=== PATIENT | female | born 1935 | race Caucasian/White ===

== ENCOUNTER 2019-05-11 10:05 | Inpatient (IN) ==
[2019-05-11] MEDS ORDERED: STERILE WATER INJ. INJ PRN ×2 (11:41→13:15)
[2019-05-11] MEDS ORDERED: GEODON IM PRN ×2 (11:41→13:09)
--- NOTE | 2019-05-11 11:56 | EKG Report ---
Test Performed on : 05/11/2019 11:49:35 AM Test Reason : Chest pain/AMS Blood Pressure : / mmHG Vent. Rate : 055 BPM Atrial Rate : 055 BPM P-R Int : 202 ms QRS Dur : 074 ms QT Int : 468 ms P-R-T Axes : 051 008 071 degrees QTc Int : 447 ms Sinus bradycardia. with premature atrial complexes. Moderate voltage criteria for LVH, may be normal variant Borderline ECG When compared with ECG of 09-APR-2009 11:29, premature atrial complexes. are now present Vent. rate has decreased BY 43 BPM Confirmed by Santy Gill MD ([id number]) on 05/15/2019 9:30:16 PM
--- NOTE | 2019-05-11 12:09 | Diag Imaging Result Doc PS360 ---
EXAM: CHEST-2 VIEWS 05/11/2019 HISTORY: Chest pain TECHNIQUE: AP and lateral chest COMMENT: There are no previous studies available for comparison. The heart size is slightly enlarged. There is no evidence of acute pulmonary disease. There is severe spondylosis in the thoracic spine. There are degenerative changes in the right acromioclavicular joint. IMPRESSION: Cardiomegaly. Degenerative disc disease. Osteoarthritis. Electronically signed by Kirk Lopez 05/11/2019 12:06 PM
--- NOTE | 2019-05-11 12:39 | Diag Imaging Result Doc PS360 ---
EXAM: CT HEAD W/O CONTRAST 05/11/2019 HISTORY: AMS TECHNIQUE: This exam was performed using automated exposure control, adjustment of mA or kV according to patient size, and/or use of iterative reconstruction technique. COMMENT: There is patchy lucency in the periventricular and subcortical white matter of both hemispheres with cortical encephalomalacia in the posterior right hemisphere. There is no evidence of bleed mass effect or abnormal extra-axial fluid collection. The calvarium is intact. The visualized paranasal sinuses are clear. There are no previous studies. IMPRESSION: Chronic ischemic changes. No evidence of acute disease. Electronically signed by Kirk Lopez 05/11/2019 12:37 PM
[2019-05-11 12:41] LABS: BASO# 0.01 X1000 (0.0-0.2); BASO% 0.1 % (0.0-0.8); EOS# 0.16 X1000 (0.0-0.7); EOS% 2.2 % (0.0-10.0); HEMOGLOBIN 13.4 g/dL (12.0-16.0); LYMPH# 2.27 X1000 (1.2-3.4); LYMPH% 31.2 % (20.5-51.1); MCH 30.7 PG (27-31); MCHC 33.5 g/dL (33-37); MCV 91.5 FL (81-99); MONO# 0.84 X1000 (0.11-0.59); MONO% 11.5 % (1.7-9.3); MPV 10.2 FL (7.4-10.4); PLT 234 X1000 (130-400); RBC 4.37 XMIL (4.2-5.4); RDW 12.9 % (11.5-14.5); WBC 7.28 X1000 (4.8-10.8)
[2019-05-11 13:01] LABS: AGAP 9; ALB/GLOB RATIO 1.6; ALBUMIN 3.9 g/dL (3.5-5.0); ALKALINE PHOSPHATASE 52 U/L (32-104); BUN 15 mg/dL (8-22); CALCIUM 9.2 mg/dL (8.8-10.2); CHLORIDE 106 mmol/L (98-107); COSMO 284; CREATININE 0.8 mg/dL (0.5-0.9); ESTIMATED GFR > 60; GLUCOSE 105 mg/dL (70-104); GOT 15 U/L (10-30); GPT 14 U/L (10-36); POTASSIUM 4.3 mmol/L (3.5-5.1); SODIUM 142 mmol/L (136-145); TCO2 27 mmol/L (25-35); TOTAL BILIRUBIN 0.18 mg/dL (0.20-1.00); TOTAL PROTEIN 6.4 g/dL (6.3-8.3)
[2019-05-11] MEDS: ULTRAM PO PRN (16:02)
[2019-05-11 17:22] LABS: URINE SOURCE CLEAN CATCH
[2019-05-11 17:23] LABS: BILIRUBIN URINE NEGATIVE (NEGATIVE); BLOOD URINE NEGATIVE (NEGATIVE); COLOR STRAW; GLUCOSE URINE NEGATIVE (NEGATIVE); KETONE URINE NEGATIVE (NEGATIVE); LEUKOCYTES URINE MODERATE (NEGATIVE); NITRITE URINE POSITIVE (NEGATIVE); PROTEIN URINE NEGATIVE (NEGATIVE); SP GRAVITY URINE 1.007; TURBIDITY URINE HAZY (CLEAR); UR EPITHELIAL CELLS <10 /HPF (<10); URINE BACTERIA 4+ /HPF; URINE RBC <10 /HPF (<10); URINE WBC <10 /HPF (<10); UROBILINOGEN URINE NORMAL (NORMAL)
--- NOTE | 2019-05-11 19:27 | HISTORY AND PHYSICAL ---
HISTORY OF PRESENT ILLNESS: Ms. Raymond who is an 83-year-old white female is admitted because of acute change in her mental status over the last 2 to 3 days. She has been more confused. She is seeing a man around her house. At times, she says, the man is there, but his children are there and these kind of stories she is making and she says that it is real. She has crying spells and severe confusion in between. Her mental status is slowing going down, but these are acute changes. She is known to have hypertension and hyperlipidemia. SURGICAL HISTORY: History of both ovaries removed. No history of smoking or alcoholism. ALLERGIC: To penicillin. REVIEW OF SYSTEMS: Cannot be obtained. MEDICATIONS: Include amlodipine 5 mg daily, lovastatin 20 mg daily, Meloxicam 15 mg daily, tramadol 50 mg p.r.n. PHYSICAL EXAMINATION: GENERAL: Patient is alert, but confused. VITAL SIGNS: Reveal temperature normal, pulse 67 per minute, irregular, respiratory rate 18, blood pressure 149/60. HEENT: Head normocephalic. Pupils PERRLA. Fundus exam normal. NECK: Supple. JVP normal. ENT: Examination unremarkable. LYMPH NODES: There is no evidence of lymphadenopathy, thyroid enlargement. EXTREMITIES: Pedal edema, calf tenderness, anemia, cyanosis or clubbing. Pedal pulses well felt. BREAST EXAM: Not done. CHEST: Normal to inspection. LUNGS: Clear on auscultation. PMI in the normal position. HEART: Sounds normal. No murmur, gallop or rub noted. ABDOMEN: Nondistended. Hernial orifices normal. No guarding, rigidity, free fluid, masses, or organomegaly. Bowel sounds normal. RECTAL: Deferred. 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 Severe mental confusion. Speech is normal. Cranial nerves normal. Motor and sensory system examination unremarkable. Deep tendon reflexes normal. Plantars downgoing. Skull and spine examination normal for age. No cerebellar signs or signs of meningeal irritation. Locomotor exam reveals presence of severe arthritis in both knees. The knees are swollen. SKIN: Unremarkable. CLINICAL IMPRESSION: Acute change in mental status. The patient has early dementia, hypertension, hyperlipidemia, degenerative osteoarthritis in both knees. PLAN: I plan to watch her neurologically and do some investigations about her increasing dementia. cc: Mathew Lowe MD
[2019-05-12] MEDS ORDERED: ZOFRAN IV PRN (08:52)
--- NOTE | 2019-05-12 09:42 | PROGRESS NOTE ---
DATE: 05/12/2019 The patient was admitted. She is in room 318-A. She was admitted because of acute change in her mental status. She has early dementia. This morning, we have the urinalysis report and it shows 4+ bacteria with too numerous WBCs. I personally feel like she has a urinary tract infection which partly could be responsible for the change in her mental status. We will start IV Levaquin on her. Her electrolytes status is normal. We will continue with the current management. CT scan of the brain shows microvascular changes. Otherwise, it is negative. -4 cc: Mathew Lowe MD
[2019-05-12] MEDS: LEVAQUIN 500 MG/D5W 500 MG/100 ML IVPB IV SCH (09:47)
[2019-05-12] MEDS: MOBIC PO SCH (09:47)
[2019-05-12] MEDS: NORVASC PO SCH (09:47)
[2019-05-12] MEDS: ULTRAM PO PRN (10:10)
[2019-05-12] MEDS ORDERED: PHENERGAN IV PRN (17:23)
[2019-05-12] MEDS ORDERED: SODIUM CHLORIDE 0.9% INJ PRN (17:23)
[2019-05-12] MEDS: MEVACOR PO SCH (19:56)
--- NOTE | 2019-05-13 08:33 | Diag Imaging Result Doc PS360 ---
EXAM: CHEST-2 VIEWS 05/13/2019 HISTORY: Pt aspirated last night. TECHNIQUE: PA and lateral chest COMMENT: There is opacification in the left costophrenic angle which has worsened since 05/11/2019. Otherwise are has been no significant change. IMPRESSION: Left lower lobe atelectasis and/or pneumonia. Electronically signed by Kirk Lopez 05/13/2019 8:30 AM
[2019-05-13] MEDS: MEVACOR PO SCH (08:40)
[2019-05-13] MEDS: MOBIC PO SCH (08:40)
[2019-05-13] MEDS: LEVAQUIN 500 MG/D5W 500 MG/100 ML IVPB IV SCH (08:40)
[2019-05-13] MEDS: NORVASC PO SCH (08:40)
[2019-05-13] MEDS ORDERED: VANCOMYCIN IV PER PHARMACY MISC SCH (11:15)
--- NOTE | 2019-05-13 12:00 | Diag Imaging Result Doc PS360 ---
EXAM: ABDOMEN FLAT/UPRIGHT HISTORY: abdominal pain TECHNIQUE: Flat and upright, two views COMPARISON: None. FINDINGS: No free air beneath the diaphragm. There is prominent stool throughout the colon. No bowel obstruction. No organomegaly. Prominent degenerative spine changes. Long-standing arthritis to the right hip. IMPRESSION: Prominent constipation Electronically signed by Junaid Vasquez 05/13/2019 11:58 AM
[2019-05-13] MEDS ORDERED: VANCOMYCIN 1,800 MG in NS 500 ML IV ONE (13:00)
--- NOTE | 2019-05-13 14:45 | EKG Report ---
Test Performed on : 05/13/2019 2:33:21 PM Test Reason : afib Blood Pressure : / mmHG Vent. Rate : 124 BPM Atrial Rate : 136 BPM P-R Int : 000 ms QRS Dur : 072 ms QT Int : 298 ms P-R-T Axes : 000 -11 110 degrees QTc Int : 428 ms Atrial fibrillation. with rapid ventricular response. Voltage criteria for left ventricular hypertrophy Nonspecific ST and T wave abnormality Abnormal ECG When compared with ECG of 11-MAY-2019 11:49, (Unconfirmed) Atrial fibrillation. has replaced Sinus rhythm. Vent. rate has increased BY [address] now depressed in Anterior leads ST no longer elevated in Lateral leads T wave inversion more evident in Lateral leads Confirmed by Santy Gill MD ([id number]) on 05/15/2019 9:33:00 PM
[2019-05-13] MEDS: CARDIZEM PO SCH ×2 (14:56→20:02)
[2019-05-13 15:19] LABS: ALLEN TEST YES; BE 3.1 mmoll (-3.0-3.0); BLOOD TYPE ARTERIAL; HCO3-(ACT) 27.3 mmoll (20.0-26.0); METHB 1.1 % (0.0-1.5); O2(CT) 18.1 mL/dL (15.0-23.0); O2HB 95.6 % (95.0-99.0); PCO2(98.6) 38 mmHg (35-45); PO2(98.6) 86 mmHg (60-100); SAMPLE BLOOD; SAO2 98.4 % (95.0-100.0); THB 13.4 g/dL (11.5-17.4); pH(98.6) 7.46 (7.35-7.45)
[2019-05-13 15:21] LABS: MODALITY CANNULA
--- NOTE | 2019-05-13 16:51 | Diag Imaging Result Doc PS360 ---
EXAM: US GB < RUQ (LIMITED) 05/13/2019 HISTORY: abdominal pain TECHNIQUE: Right upper quadrant ultrasound COMMENT: The pancreatic head and body are normal in appearance. The infrarenal abdominal aorta is slightly distended to a maximum AP diameter of 2.3 cm. The inferior vena cava is unremarkable where it is visible. The liver is unremarkable. There is a large stone in the gallbladder. This measures at least 2 cm in size. There is a positive sonographic Martinez sign. The right kidney is without evidence of hydronephrosis or mass. There is antegrade flow in the portal vein. The common bile duct is not distended measuring less than 4 mm. IMPRESSION: Minimal abdominal aortic aneurysm. Cholelithiasis and possible cholecystitis. Electronically signed by Kirk Lopez 05/13/2019 4:48 PM
[2019-05-14] MEDS: CARDIZEM PO SCH ×3 (04:04→22:21)
[2019-05-14] MEDS ORDERED: ELIQUIS PO SCH ×2 (09:00→21:00)
[2019-05-14] MEDS: LEVAQUIN 500 MG/D5W 500 MG/100 ML IVPB IV SCH (09:07)
[2019-05-14 09:24] LABS: AGAP 12; BUN 19 mg/dL (8-22); CHLORIDE 105 mmol/L (98-107); COSMO 287; CREATININE 0.8 mg/dL (0.5-0.9); ESTIMATED GFR > 60; GLUCOSE 124 mg/dL (70-104); POTASSIUM 4.1 mmol/L (3.5-5.1); SODIUM 142 mmol/L (136-145); TCO2 25 mmol/L (25-35)
--- NOTE | 2019-05-14 10:08 | PROGRESS NOTE ---
DATE: 05/13/2019 SUBJECTIVE: Ms. Raymond aspirated yesterday and probably developed pneumonia. She had a left lower lobe infiltrate. We are already giving her IV Levaquin, and we will add vancomycin on top of that. She seems to be doing better. Her vital signs are stable. She is still confused. We will continue with the current management. cc: Mathew Lowe MD
--- NOTE | 2019-05-14 10:43 | CARDIOLOGY CONSULTATION ---
DATE: 05/14/2019 INDICATION: Atrial fibrillation with rapid response. CHIEF COMPLAINT: Confusion, abdominal discomfort. HISTORY: Ms. Raymond is a very pleasant 83-year-old female, who was admitted to the hospital on May 11 as recommended by home health nurses because they found her confused at home. Initially on May 11 they did a chest x-ray that shows cardiomegaly, osteoarthritis, degenerative disk disease. The first electrocardiogram done on the day of admission at 1130 hours in the morning shows sinus rhythm with premature atrial beats. The patient received a CT of the head that showed chronic ischemic changes. Urinalysis grew E coli which is sensitive to several antibiotics, including ampicillin and Levaquin. The patient subsequently was found to have tachycardia with an irregular pulse, and telemetry revealed atrial fibrillation with rapid response. EKG done yesterday at 1433 hours in the afternoon shows atrial fibrillation, 124 beats per minute with a leftward axis LVH. The patient had complained of abdominal pain at home. This seems to have gotten better. Her appetite is preserved. She has not lost any weight. She denies feeling short of breath or having any pain at this time. PAST HISTORY: Positive for hypertension, hyperlipidemia. She is not diabetic. She has no prior history of stroke or atrial fibrillation. No heart disease. SURGICAL HISTORY: She had hysterectomy many years ago. SOCIAL HISTORY: She has been a for more than 30 years. She has 3 living children; 1 was . She is not a smoker. FAMILY HISTORY: She was the youngest of 8 siblings. No significant history of heart disease in family members, parents or siblings. HOME MEDICATIONS: At the time of this admission included amlodipine 5 mg daily, metoprolol 100 twice a day, Mobic 15 mg daily, ibuprofen with diphenhydramine at bedtime. She also takes a multivitamin. ALLERGIES: Penicillin. REVIEW OF SYSTEMS: The patient has no history of previous chest pains or dyspnea. No episode of pneumonia. Last hospital admission 30 years ago for flu. No recent urinary tract infection. No GI complaints. No skin issues. No previous psychiatric illness or stroke. No hearing or visual problems. Her balance is really not that good. However, she has not had any falls at home. She walks with a walker. No other significant issues in the review of systems. PHYSICAL EXAMINATION: Vital signs: Blood pressure 146/50, temperature 97.6 degrees, pulse fluctuates from 70 to 100, respirations 20. General: The patient is awake, alert, oriented, in no distress. HEENT: Unremarkable. Neck: No jugular venous distention. No cervical bruits. Chest: Shows diminished breath sounds, especially in the right base. I do not hear any rales. Heart: Sounds are irregularly irregular. I do not appreciate any murmur. Abdomen: Slightly distended, tympanitic. No hepatomegaly noted. Extremities: Showed palpable pulses without significant edema. No varicose veins. Neurological exam: She follows simple commands. Hearing is good. BLOOD WORK: On admission, white cell count 7280, hemoglobin 13.4, hematocrit 40%. Her sedimentation rate is slightly up to 25 mm an hour. D-dimer 3.8. Blood gases: A pH 7.46, pCO2 38, PO2 86; this is on 2 L nasal cannula. Her BMP today shows sodium 142, potassium 4.1, BUN 19, creatinine 0.8. C-reactive protein is slightly elevated at 6.76. Urinalysis showed moderate leukocytes, 4+ bacteria. LDL cholesterol 78. IMPRESSION: 1. Patient who presented with what appears to be transient confusion/mental status changes probably related to urinary tract infection/urosepsis. 2. Paroxysmal atrial fibrillation. 3. Hypertension. 4. Hyperlipidemia. RECOMMENDATION: At this time, I would suggest to get an echocardiogram. I agree with Eliquis 5 mg twice a day. I am going to add low-dose metoprolol 25 mg every 6 hours to the current doses of Cardizem 60 every 8 hours that was started by Dr. Lowe. Since the patient is relatively asymptomatic from the atrial fibrillation, we may not need to try to achieve conversion to sinus rhythm. We will try to focus on rate control. She may actually convert spontaneously. I will order an echocardiogram today and further advice will be forthcoming. I agree with CT of the lungs that has been requested by Dr. Lowe because of the positive D-dimer. cc: MD Matehw Ruiz MD MTDD
--- NOTE | 2019-05-14 11:27 | Diag Imaging Result Doc PS360 ---
EXAM: CT ANGIOGRM PULMONARY ARTERIES 05/14/2019 HISTORY: Elevated D-Dimer TECHNIQUE: This exam was performed using automated exposure control, adjustment of mA or kV according to patient size, and/or use of iterative reconstruction technique. COMMENT: 3-D MIPS were performed. There are no previous studies available for comparison. There are filling defects in the interlobar pulmonary artery on the right and multiple peripheral branches. There may also be some peripheral emboli in the left lower lobe. There is retained fluid in the esophagus. There is a fair amount of retained fluid and solid material in the stomach. There is apparent cholelithiasis. There is no evidence of significant adenopathy. There are spondylotic changes in the thoracic spine. There is a noncalcified pulmonary nodule in the posterior right lower lobe on image 32 measuring 8 mm in diameter. There is also some pleural-based nodules posteriorly in the apex and focal pleural thickening with nodularity laterally in the right upper lobe around image 21. There are atelectatic or fibrotic changes in the lingula and left lower lobe. IMPRESSION: Pulmonary emboli on the right. Retained fluid in the stomach and esophagus. Pulmonary nodules in the right upper lobe. The findings were discussed with Mathew Lowe MD at 05/14/2019 11:24 AM. Electronically signed by Kirk Lopez 05/14/2019 11:24 AM
[2019-05-14] MEDS: LOPRESSOR PO SCH ×3 (11:35→22:20)
[2019-05-14] MEDS: MOBIC PO SCH (13:39)
--- NOTE | 2019-05-14 13:50 | PROGRESS NOTE ---
DATE: 05/14/2019 SUBJECTIVE: Ms. Raymond had aspiration pneumonia on the left side yesterday. She suddenly went into atrial fibrillation with rapid heart rate. Cardiology consult was made. Her lab data revealed normal CBC. D-dimer level was 3.8, which was somewhat high. Arterial blood gases were unremarkable. Her C-reactive proteins were 6.76, which were high. She had a CTA done this morning which shows right-sided pulmonary emboli and some nodularity in the right lung base. She is already on Eliquis. We are going to get a Pulmonary consult with Dr. Ambriz. She according to the family is going to be no code level 2. cc: Mathew Lowe MD
[2019-05-14] MEDS: VANCOMYCIN 1,250 MG in NS 250 ML IV SCH (13:54)
--- NOTE | 2019-05-14 15:58 | ECHO REPORT ---
ORDER DATE: 05/14/2019 INTERPRETING PHYSICIAN: Dr. Mckinley REQUESTING PHYSICIAN: CLINICAL INDICATIONS: This is an 83-year-old female with atrial fibrillation, paroxysmal, urinary tract infection. M-MODE MEASUREMENTS: Right ventricle: cm. Left ventricle end diastole: 4.4 cm. Left ventricle end systole: 3.1 cm. Posterior wall: 1.2 cm. Interventricular septum: 1.2 cm. Left atrium: 4.1 cm. Aortic root: 3.3 cm. SUMMARY OF 2-DIMENSIONAL IMAGIN. Left ventricular function is normal. Ejection fraction was 62%. There was no wall motion abnormality noted. 2. Right ventricle appears to be normal. 3. Atria appear to be normal. 4. Aortic valve looks normal. Color flow mapping is unremarkable. 5. Mitral valve looks normal. Color flow mapping indicates minimal degree of regurgitation. 6. Pulse wave Doppler of mitral inflow shows reversal of the E and the A ratio. The ratio is 0.6. 7. Tissue Doppler of septal and lateral mitral annulus averages 9 cm. 8. There is no diastolic dysfunction. 9. Pulmonic valve looks normal. 10.Tricuspid valve looks normal. Color flow mapping indicates mild degree of regurgitation. 11.Pulmonary pressure estimated at 43 mmHg. 12.There is no pericardial effusion, mass or thrombus. 13.Epicardial fat pad is noted. CONCLUSIONS: In summary, this study shows: 1. Normal left ventricular systolic function. 2. No diastolic dysfunction. 3. Pulmonary pressure 43 mmHg. 4. Mild degree of mitral regurgitation. 5. Unremarkable aortic valve. Clinical correlation recommended. cc: MD Mathew Ruiz MD
--- NOTE | 2019-05-14 16:57 | PULMONOLOGY CONSULTATION ---
DATE: 05/14/2019 REASON FOR CONSULTATION: Aspiration pneumonia, pulmonary embolism. HISTORY OF PRESENT ILLNESS: Ms. Raymond is an 83-year-old white female, never smoker, who may have early dementia, who was found to have increasing confusion with periods of hallucinations. The patient was evaluated by Dr. Lowe and subsequently admitted to the hospital with a urinary tract infection. Cultures revealed Escherichia coli. CT scan of the brain did not reveal acute changes. She did have an episode of emesis with possible aspiration in the evening of 05/12/2019 and chest x-ray on 05/13/2019 revealed possible pneumonia with atelectasis in the left lung base. This morning she developed atrial fibrillation with rapid ventricular response. The D-dimer was elevated. She underwent a CT pulmonary angiogram which revealed a pulmonary embolus to the right lower lobe with nonspecific subcentimeter nodules noted in the right lower lobe and in the right upper lobe. The patient is a questionable historian. She is a never smoker. She does report she had some clots in her left leg many years ago. She is currently undergoing an echocardiogram. PAST MEDICAL HISTORY: 1. Possible early dementia. 2. History of varicose veins. 3. Dyslipidemia. 4. Gastroesophageal reflux. 5. Macular degeneration. 6. Osteoarthritis. 7. Status post bilateral salpingo-oophorectomy. SOCIAL HISTORY: She is a never smoker. No alcohol use listed. She lives with her daughter. FAMILY HISTORY: Notable for a brother who had tuberculosis almost 60 years ago. Family history also positive for diabetes and heart disease . REVIEW OF SYSTEMS: Noncontributory and reviewed. PHYSICAL EXAM: Reveals an obese white female resting comfortably and in no distress. Blood pressure 155/75, heart rate 86, respiratory rate 16, oxygen saturation 99% on nasal cannula.HEENT: Pupils are equal and reactive. Oropharynx appears clear. Neck: Supple. Chest: Reveals minimal crackles in both lung bases. Cardiac: S1, S2. Abdomen: Obese and soft. Extremities: Reveal trace to 1+ peripheral edema. No markedly enlarged varicose veins present. IMPRESSION: 83-year-old with 1. Pulmonary emboli. 2. Possible history of deep vein thrombosis (will clarify with the family). 3. Confusion, which appears to be related to the urinary tract infection. 4. Paroxysmal atrial fibrillation. This may be related to pulmonary embolus but the amount of burden is not that great. She may be having paroxysmal episodes related to the embolus. 5. Episode of emesis with possible aspiration. CT scan reveals pulmonary embolus and some nonspecific nodules but does not show a significant pneumonitis. She might tolerate short course of antibiotics. PLAN: 1. Initiate Eliquis. Initial dosing is 10 mg twice a day for the 1st 7 days followed by 5 mg b.i.d. She might require lifelong anticoagulation if she has paroxysmal atrial fibrillation and this represents recurrent disease. 2. Consider followup CT scan for these nonspecific nodules in 6 months but her risk of malignancy appears to be low. cc: MD Mathew Garcia MD
[2019-05-14] MEDS ORDERED: LINZESS PO ONE (17:15)
[2019-05-14] MEDS: MEVACOR PO SCH (18:08)
[2019-05-14] MEDS: ELIQUIS PO SCH (22:20)
[2019-05-15] MEDS: LOPRESSOR PO SCH ×4 (03:08→20:15)
[2019-05-15] MEDS: CARDIZEM PO SCH ×3 (04:13→20:15)
[2019-05-15] MEDS: LINZESS PO SCH (06:24)
--- NOTE | 2019-05-15 06:56 | EKG Report ---
Test Performed on : 05/15/2019 06:37:51 AM Test Reason : paroxysmal atrial fibrillation Blood Pressure : / mmHG Vent. Rate : 069 BPM Atrial Rate : 069 BPM P-R Int : 210 ms QRS Dur : 082 ms QT Int : 412 ms P-R-T Axes : 082 -04 090 degrees QTc Int : 441 ms Sinus rhythm. with 1st degree AV block. with premature atrial complexes. Minimal voltage criteria for LVH, may be normal variant Borderline ECG When compared with ECG of 13-MAY-2019 14:33, (Unconfirmed) Sinus rhythm. has replaced Atrial fibrillation. Vent. rate has decreased BY 55 BPM Confirmed by Santy Gill MD ([id number]) on 05/15/2019 9:33:21 PM
[2019-05-15] MEDS: LEVAQUIN 500 MG/D5W 500 MG/100 ML IVPB IV SCH (08:00)
[2019-05-15] MEDS: ELIQUIS PO SCH ×2 (08:59→20:15)
--- NOTE | 2019-05-15 10:50 | CARDIOLOGY PROGRESS NOTE ---
DATE: 05/15/2019 CHIEF COMPLAINT: Confusion, irregular heart beat. SUBJECTIVE: Ms. Raymond is feeling better. She converted to sinus rhythm with the addition of beta blockers. Yesterday, a CT of the pulmonary arteries revealed the presence of pulmonary emboli at the level of the right pulmonary branches, right upper lobe, and lower lobe. Also some in the left lower lobe. There is apparent cholelithiasis described by the radiologist. The patient is already on Eliquis 10 mg twice a day as suggested by Dr. Lowe. OBJECTIVE: Blood pressure is 141/80, temperature 97.8, pulse 68, respirations 18. She is awake, in no distress. She seems to be more comfortable. HEENT: Unremarkable. Chest: Slightly diminished breath sounds at the bases. Heart sounds are regular with occasional extrasystole. Abdomen is nontender. Extremities showed no edema. Neurologic: Follows commands. Moves all 4 extremities. DIAGNOSTIC DATA: Blood work from yesterday showed sodium 142, potassium 4.1, BUN and creatinine normal. IMPRESSION: 1. The patient presented with acute mental status changes, suspected to be related to urosepsis. Urine is growing E. coli. 2. Incidental finding of pulmonary emboli. 3. Paroxysmal atrial fibrillation which has converted to sinus rhythm with beta blockers. 4. Hypertension. 5. History of hyperlipidemia. RECOMMENDATIONS: At this time, I would suggest to continue present medical therapy as we are doing. We will observe her clinical course. No changes at this time. I agree with Dr. Ambriz's and Dr. Lowe's plan of care. cc: MD Mathew Ruiz MD
--- NOTE | 2019-05-15 12:37 | PROGRESS NOTE ---
DATE: 05/15/2019 Ms. Raymond is feeling better. Her vital signs are stable. Lungs reveal some congestion bilaterally, more on the left side. She has a DVT and we will give her stockings. Overall condition is otherwise unchanged. Her EKG shows regular sinus rhythm. Echocardiogram shows good left ventricular function with EF of 62.7. Overall condition is unchanged. She is on Eliquis now. -2 cc: Mathew Lowe MD
[2019-05-15] MEDS: VANCOMYCIN 1,250 MG in NS 250 ML IV SCH (13:32)
--- NOTE | 2019-05-15 15:21 | PULMONOLOGY PROGRESS NOTE ---
DATE: 05/15/2019 SUBJECTIVE: The patient is awake and alert. She is without specific complaints. Family is present at the bedside. She does not recall a prior clot in the leg. Report not available for review, but the family reports that venous Dopplers did reveal a clot in the left leg. PHYSICAL EXAMINATION: General: Reveals a well-developed, well-nourished, white female in no distress. Vital Signs: BP 141/80, heart rate 68, respiratory rate 16, oxygen saturation 94% on 2 L per nasal cannula. HEENT: Pupils are equal and reactive. Oropharynx is clear. Neck: Supple. Chest: Reveals good air entry bilaterally without wheezing or rhonchi. Cardiac Exam: S1-S2. Abdomen: Soft. Extremities: Reveal trace bilateral edema. LABORATORIES: No new chemistries or cultures. IMPRESSION: An 83-year-old with: 1. Pulmonary emboli. 2. Deep vein thrombosis. 3. Pulmonary nodules. 4. Transient paroxysmal atrial fibrillation. 5. Dementia. RECOMMENDATIONS: 1. Continue Eliquis 10 mg twice a day for 7 days and then decrease to 5 mg twice a day. 2. Wean oxygen as tolerated. 3. Anticipate discharge home or rehab early next week. 4. Would continue Eliquis indefinitely if she has had known venous clots in the lower extremities but would alternatively treat her with 3 to 6 months if this is her first event. Family believes she may be echoing a condition that her mother had with clots while being a resident in a [facility]. cc: MD Mathew Garcia MD
[2019-05-15] MEDS: MEVACOR PO SCH (18:01)
[2019-05-16] MEDS: LOPRESSOR PO SCH ×4 (01:09→20:33)
[2019-05-16] MEDS: LINZESS PO SCH (06:16)
[2019-05-16] MEDS: CARDIZEM PO SCH ×3 (06:16→20:33)
[2019-05-16] MEDS: ULTRAM PO PRN (06:17)
--- NOTE | 2019-05-16 07:11 | EKG Report ---
Test Performed on : 05/16/2019 07:04:42 AM Test Reason : paroxysmal atrial fibrillation Blood Pressure : / mmHG Vent. Rate : 085 BPM Atrial Rate : 085 BPM P-R Int : 206 ms QRS Dur : 070 ms QT Int : 386 ms P-R-T Axes : 062 006 079 degrees QTc Int : 459 ms Normal sinus rhythm. with sinus arrhythmia. Normal ECG When compared with ECG of 15-MAY-2019 06:37, premature atrial complexes. are no longer present Confirmed by Santy Gill MD ([id number]) on 05/16/2019 12:42:04 PM
[2019-05-16] MEDS: LEVAQUIN 500 MG/D5W 500 MG/100 ML IVPB IV SCH (08:28)
[2019-05-16] MEDS: ELIQUIS PO SCH ×2 (08:28→20:33)
--- NOTE | 2019-05-16 09:28 | CARDIOLOGY PROGRESS NOTE ---
DATE: 05/16/2019 PRIMARY CARE PHYSICIAN: Dr. Lowe CHIEF COMPLAINT: Confusion, irregular heartbeat. SUBJECTIVE: Ms. Raymond is in better spirits today. She has no major complaints. She is eating her breakfast. Her ECG today shows sinus rhythm. OBJECTIVE: Vital signs: Blood pressure is 144/74, temperature 98.7, pulse 81, respirations 17. She is awake and alert. She is eating her breakfast. HEENT is unremarkable. Chest sounds fairly clear to auscultation and percussion. Heart sounds are regular and rhythmic. No gallop or murmur. Her abdomen is nontender. Extremities showed no obvious edema. Neurologic: Follows commands. Moves all 4 extremities. IMPRESSION: 1. The patient presented to the hospital initially with confusion, mental status changes, suspected to have some type of delirium secondary to urinary tract infection. E. coli is growing in the urine. 2. Paroxysmal atrial fibrillation which has resolved. 3. Finding of bilateral pulmonary emboli. 4. History of hyperlipidemia and history of hypertension. RECOMMENDATIONS: At this time, I fully agree with decision to keep her on high dose Eliquis for management of pulmonary embolism. Her paroxysmal atrial fibrillation is probably reactive to the stress of the pulmonary embolism and her urinary tract infection. At this time, since she is basically asymptomatic and stable on current combination of metoprolol and diltiazem, I really do not have anything else to add. She is anticoagulated. I will leave her management into the hands of Dr. Lowe and Dr. Ambriz. Please call me if further assistance is needed. cc: MD Mathew Ruiz MD MTDD
--- NOTE | 2019-05-16 09:33 | PROGRESS NOTE ---
DATE: 05/16/2019 SUBJECTIVE: Ms. Raymond is feeling better. Her vital signs are stable. She is in sinus rhythm. She is afebrile. Lungs still reveal some congestion. We are going to continue the current line of management on her. She has pulmonary emboli in the right lung and aspiration pneumonia in the left lower lung. cc: Mathew Lowe MD
[2019-05-16] MEDS: VANCOMYCIN 1,750 MG in NS 250 ML IV SCH (15:35)
[2019-05-16] MEDS: MEVACOR PO SCH (17:25)
--- NOTE | 2019-05-16 18:36 | PULMONOLOGY PROGRESS NOTE ---
DATE: 05/16/2019 SUBJECTIVE: The patient is awake and alert and eating supper. She denies cough. She denies sputum production. She denies shortness of breath. OBJECTIVE: HEENT: Pupils are equal and reactive. Oropharynx is clear. Neck: Supple. Chest: Reveals good air entry bilaterally with rare rhonchi. Cardiac: S1, S2. Abdomen: Soft and without hepatosplenomegaly. Extremities: Without edema. LABORATORIES: No new laboratories today. IMPRESSIONS: An 83-year-old with: 1. Pulmonary embolus. 2. Deep vein thrombosis. 3. Nonspecific pulmonary nodules. 4. Dementia. 5. Paroxysmal atrial fibrillation. PLAN: 1. Continue anticoagulation. 2. Initiate O2 protocol for weaning. 3. Antibiotics per Dr. Lowe. cc: MD Mathew Garcia MD
[2019-05-17] MEDS: LOPRESSOR PO SCH ×4 (03:00→20:44)
[2019-05-17] MEDS: CARDIZEM PO SCH ×3 (06:13→20:44)
[2019-05-17] MEDS: LINZESS PO SCH (06:13)
--- NOTE | 2019-05-17 06:53 | EKG Report ---
Test Performed on : 05/17/2019 06:47:21 AM Test Reason : paroxysmal atrial fibrillation Blood Pressure : / mmHG Vent. Rate : 088 BPM Atrial Rate : 088 BPM P-R Int : 200 ms QRS Dur : 072 ms QT Int : 358 ms P-R-T Axes : 075 006 070 degrees QTc Int : 433 ms Sinus rhythm. with premature atrial complexes. Minimal voltage criteria for LVH, may be normal variant Borderline ECG When compared with ECG of 16-MAY-2019 07:04, premature atrial complexes. are now present Confirmed by Santy Gill MD ([id number]) on 05/17/2019 7:50:31 AM
[2019-05-17] MEDS: MEVACOR PO SCH (09:19)
[2019-05-17] MEDS: LEVAQUIN 500 MG/D5W 500 MG/100 ML IVPB IV SCH (09:19)
[2019-05-17] MEDS: ELIQUIS PO SCH ×2 (09:27→20:44)
--- NOTE | 2019-05-17 09:48 | PROGRESS NOTE ---
DATE: 05/17/2019 SUBJECTIVE: Ms. Raymond is recovering from pneumonia. We are going to repeat the chest x-ray. Other vital signs are stable. We had a repeat EKG as she had paroxysmal atrial fibrillation. Today's EKG shows RSR with evidence of LVH. We will continue the current management on her. cc: Mathew Lowe MD
[2019-05-17] MEDS ORDERED: CALMOSEPTINE OINTMENT TOP PRN (13:32)
--- NOTE | 2019-05-17 13:46 | PULMONOLOGY PROGRESS NOTE ---
DATE: 05/17/2019 SUBJECTIVE: The patient is awake, alert, and conversant. She denies shortness of breath. She denies cough. She reports she is having some problems with her leg and it will not move. PHYSICAL EXAMINATION: General: Reveals a well-developed, well-nourished female, resting comfortably and in no distress. Vital signs: Blood pressure 135/91, heart rate 74, respiratory rate 20, oxygen saturation 97% on 2 L per nasal cannula. HEENT: Pupils are equal and reactive. Oropharynx is clear. Neck: Supple. Chest: Reveals good air entry without wheezing or rhonchi. Cardiac Exam: S1, S2. Abdomen: Soft. Extremities: Without edema. On flexion of the knee, patient has active resistance and extension. She reports she is having some pain in the knee, but there is no evidence of flaccidity. IMPRESSION: 1. An 83-year-old with pulmonary embolus. 2. Deep vein thrombosis. 3. Dementia. 4. Nonspecific pulmonary nodules. 5. Paroxysmal atrial fibrillation. PLAN: 1. Continue Eliquis 10 mg b.i.d. for 7 days and then transitioned to Eliquis 5 mg b.i.d. 2. Wean oxygen as tolerated. She was transiently weaned off oxygen, but her saturations did drop to 89%. 3. Continue physical therapy. cc: MD Mathew Garcia MD
[2019-05-17] MEDS: VANCOMYCIN 1,750 MG in NS 250 ML IV SCH (14:34)
[2019-05-18] MEDS: LOPRESSOR PO SCH ×4 (02:54→20:49)
[2019-05-18] MEDS: CARDIZEM PO SCH ×3 (04:30→20:50)
[2019-05-18] MEDS: LINZESS PO SCH (05:59)
--- NOTE | 2019-05-18 08:05 | Diag Imaging Result Doc PS360 ---
CHEST-2 VIEWS - 05/18/2019 INDICATION: pneumonia COMPARISON: 05/13/2019 FINDINGS: There has been improvement in aeration of the left lower lobe, with some residual minimal atelectasis. Heart size and pulmonary vascularity is borderline. No pneumothorax or pleural effusion. No new infiltrates or edema. IMPRESSION: Improvement in the left lower lobe infiltrate/atelectasis. Electronically signed by Sidney Rabago 05/18/2019 8:03 AM
[2019-05-18] MEDS: LEVAQUIN 500 MG/D5W 500 MG/100 ML IVPB IV SCH (08:08)
[2019-05-18] MEDS: MEVACOR PO SCH (08:36)
[2019-05-18] MEDS: ELIQUIS PO SCH ×2 (08:36→20:49)
--- NOTE | 2019-05-18 09:44 | PROGRESS NOTE ---
DATE: 05/18/2019 Ms. Raymond had a repeat chest x-ray today. She is in about the same general condition. The left lower lobe pneumonia is improving. There is still congestion on the left side. However, it is improving. We will be shooting for her going to the correction by Thursday, which is 2 days from now. -7 cc: Mathew Lowe MD
[2019-05-18] MEDS: ULTRAM PO PRN ×2 (12:27→18:35)
--- NOTE | 2019-05-18 12:57 | Extremity Venous Study ---
PROCEDURE NAME: Venous U/S Bilateral Legs - 05/14/2019 BILATERAL LOWER EXTREMITY VENOUS DUPLEX, AND COLOR FLOW IMAGING STUDY: TECHNIQUE: Using the [employer] Vivid E9 ultrasound System with a 9L-D transducer. REFERRING PHYSICIANS: Dr. Lowe PATIENT IDENTIFICATION: An 83-year-old female. CONVEYOR OPERATOR: Annette Marin RVT. INDICATIONS: Bilateral lower extremity pain and edema. She has a history of pulmonary she has a pulmonary embolus and she has an elevated D-dimer. Rule out deep venous thrombosis lower extremities. FINDINGS: There is an acute deep venous thrombosis involving the distal common femoral vein and extending into both branches of the superficial and deep femoral veins and down into the right popliteal vein. The superficial veins were compressible. There is also an acute deep venous thrombosis involving the left posterior tibial vein below the knee on the left. The more proximal deep veins were compressible and had flow through them. The superficial veins of the left lower extremity were compressible. INTERPRETATION: 1. An acute long-segment deep venous thrombosis involving the deep veins of the right lower extremity. 2. Acute deep venous thrombosis involving the small veins below the left knee. cc: MD Mathew Cullen MD
[2019-05-18] MEDS: VANCOMYCIN 1,750 MG in NS 250 ML IV SCH (15:20)
--- NOTE | 2019-05-18 23:44 | PULMONOLOGY PROGRESS NOTE ---
DATE: 05/18/2019 SUBJECTIVE: The patient is awake, alert and conversant. She is being assisted with meals by her family. She is without specific complaints. OBJECTIVE: The patient has been afebrile for the last 24 hours, with a maximum temperature of 100.9 degrees yesterday evening at 8 p.m. Current blood pressure 147/73, heart rate 78, respiratory rate 18, oxygen saturation 98% on 2 L per nasal cannula.HEENT: Pupils are equal and reactive. Oropharynx appears clear. Neck is supple. Chest reveals good air entry bilaterally without wheezing or rhonchi. Cardiac exam: Normal S1, normal S2. Abdomen is soft and without hepatosplenomegaly. Extremities without edema. DIAGNOSTIC DATA: Chest x-ray reveals minimal residual atelectasis/infiltrate at the left base. Venous Doppler of the lower extremities results are now available, which revealed acute deep vein thrombosis in the distal common femoral vein, in both superficial and deep femoral veins in the right leg, and a deep vein thrombosis in the left posterior tibial vein below the knee on the left. IMPRESSION: An 83-year-old with: 1. Pulmonary emboli. 2. Bilateral deep vein thrombosis. 3. Atelectasis/pneumonia, left base. 4. Transient paroxysmal atrial fibrillation. 5. Hypoxemic respiratory failure. 6. Dementia. RECOMMENDATIONS: 1. Continue Eliquis 10 mg twice a day for 7 days and then decrease to 5 mg twice a day. 2. Wean oxygen as tolerated. 3. Discharge planning as per Dr. Lowe. cc: MD Mathew Garcia MD
[2019-05-19] MEDS: LOPRESSOR PO SCH ×4 (01:19→20:02)
[2019-05-19] MEDS: CARDIZEM PO SCH ×3 (04:54→20:01)
[2019-05-19] MEDS: LINZESS PO SCH (06:10)
[2019-05-19] MEDS: LEVAQUIN 500 MG/D5W 500 MG/100 ML IVPB IV SCH (08:31)
[2019-05-19] MEDS: ELIQUIS PO SCH ×2 (08:31→20:01)
--- NOTE | 2019-05-19 09:41 | PROGRESS NOTE ---
DATE: 05/19/2019 SUBJECTIVE: Ms. Raymond is more alert and trying to eat well. She is not choking. Her physical exam is unchanged. We are repeating the chest x-ray tomorrow. We are also making arrangements for her to have a rehab bed at [facility], [place]. In the meantime, physical therapy is helping her here. Her vital signs are stable. Lungs still reveal some congestion. However, it is much better. -7 cc: Mathew Lowe MD
[2019-05-19] MEDS: VANCOMYCIN 1,750 MG in NS 250 ML IV SCH (16:35)
[2019-05-19] MEDS ORDERED: MEVACOR PO SCH (17:00)
[2019-05-19] MEDS: ULTRAM PO PRN (20:02)
--- NOTE | 2019-05-19 23:13 | PULMONOLOGY PROGRESS NOTE ---
DATE: 05/19/2019 SUBJECTIVE: The patient is awake, alert, and oriented to name and hospital. She reports she hurts and has a soft moan, but then cannot specify where she might be hurting, but only indicates "all over." She denies shortness of breath. Her p.o. intake continues to improve. She indicates she is going home tomorrow, but Dr. Lowe's notes indicate that rehab is anticipated. OBJECTIVE: Vital signs: Maximum temperature in the last 24 hours is 99.6 degrees. BP 132/65, heart rate 76, respiratory rate 14, oxygen saturation 100% on 2 L nasal cannula. HEENT: Pupils are equal and reactive. Oropharynx appears clear. Neck: Supple. Chest: Reveals crackles left base, but otherwise clear. Cardiac: S1, S2. Abdomen: Soft. Extremities: Without edema. IMPRESSION: An 83-year-old with 1. Pulmonary emboli. 2. Bilateral deep vein thrombosis. 3. Atelectasis. 4. Hypoxemic respiratory failure. 5. Dementia. RECOMMENDATIONS: 1. Continue Eliquis as outlined before. 2. Wean oxygen as tolerated. 3. Anticipate discharge to a rehab soon. cc: MD Mathew Garcia MD
[2019-05-20] MEDS: LOPRESSOR PO SCH ×2 (01:37→09:09)
[2019-05-20] MEDS: CARDIZEM PO SCH ×2 (04:53→13:16)
[2019-05-20] MEDS: LINZESS PO SCH (06:09)
--- NOTE | 2019-05-20 08:03 | Diag Imaging Result Doc PS360 ---
EXAM: CHEST-2 VIEWS INDICATION: follow up pneumonia TECHNIQUE: 2 views COMPARISON: 05/18/2019 FINDINGS: The mild left lower lung zone atelectasis is unchanged. No new consolidation is identified. Cardiac silhouette is stable. IMPRESSION: Grossly stable chest. Electronically signed by Juan Kelly 05/20/2019 8:01 AM
[2019-05-20] MEDS: ELIQUIS PO SCH (09:09)
[2019-05-20] MEDS: LEVAQUIN 500 MG/D5W 500 MG/100 ML IVPB IV SCH (09:09)
--- NOTE | 2019-05-20 11:00 | PROGRESS NOTE ---
DATE: 05/20/2019 SUBJECTIVE: Ms. Raymond has improved. Her lungs sound much clearer. Chest x-ray is clear. We will discharge her to correction at [place] for rehabilitation. -2 cc: Mathew Lowe MD
[2019-05-20 11:48] VITALS: BP 147/64
--- NOTE | 2019-05-20 11:57 | DISCHARGE SUMMARY ---
ADMISSION DATE: 05/11/2019 DISCHARGE DATE: 05/20/2019 HISTORY OF PRESENT ILLNESS: Ms. Raymond is an 83-year-old white female, who was admitted with change in her mental status. A CT scan of the brain revealed chronic ischemic changes. Abdominal ultrasound revealed a small abdominal aortic aneurysm, cholelithiasis, and possible cholecystitis. Pulmonary arteriogram revealed presence of pulmonary emboli on the right side. There was some retained fluid in the stomach. Chest x-ray after aspiration revealed left-sided pneumonia. A echocardiogram Doppler revealed ejection fraction of 62%. There was normal left ventricular function. Mild degree of mitral regurgitation. DIAGNOSTIC STUDIES: CBC was unremarkable. D-dimer was 3.8, somewhat elevated. Arterial blood gases were satisfactory, even on room air. Electrolytes were normal. BUN was 15, creatinine 0.8. Urine analysis revealed 4+ bacteria, positive nitrites. COURSE IN THE HOSPITAL: She started aspirating, so we did a chest x-ray which revealed pneumonia, and IV vancomycin as well as Levaquin were given. She had UTI. She had cholelithiasis. She also developed bilateral DVT in the left thigh and in the right leg. She was placed on Eliquis as well as elastic stockings on the legs. She is doing well. Chest x-ray is clear. DISPOSITION: We will discharge her to [facility] today. FINAL DIAGNOSES: 1. Bilateral deep vein thrombosis. 2. Pulmonary embolism. 3. Acute mental status change. 4. Aspiration pneumonia on the left side. 5. Urinary tract infection. 6. Cholelithiasis. cc: Mathew Lowe MD
[2019-05-20] MEDS ORDERED: COLACE PO ONE (13:06)
== END 2019-05-20 14:04 | DRG 689 ==
LOC: DIRADM 10:05 → 3N 10:38
PROVIDERS: ADMIT Internal Medicine; ATTEND Internal Medicine

== ENCOUNTER 2019-08-20 15:28 | Inpatient (IN) ==
[2019-08-20] MEDS ORDERED: MAXIPIME 1 GM in NS 50 ML IV ONE (15:38)
[2019-08-20] MEDS ORDERED: VANCOMYCIN 1 GM/NS 1 GM/250 ML IVPB IV ONE (15:38)
[2019-08-20] MEDS ORDERED: NS 1,000 ML IV ONE (15:38)
[2019-08-20] MEDS ORDERED: SOLU-MEDROL IV ONE (15:38)
[2019-08-20] MEDS ORDERED: DUONEB (A & A) INH ONE (15:39)
[2019-08-20] MEDS ORDERED: CARDIZEM IV ONE ×2 (15:48→16:46)
--- NOTE | 2019-08-20 16:10 | Diag Imaging Result Doc PS360 ---
CHEST-1 VIEW - 08/20/2019 INDICATION: resp distress COMPARISON: 05/20/2019 FINDINGS: There is cardiomegaly and pulmonary vascular congestion. There is ill-defined bilateral interstitial pulmonary edema. There are trace pleural effusions. IMPRESSION: Cardiomegaly, pulmonary edema, trace pleural effusions. Electronically signed by Sidney Rabago 08/20/2019 4:08 PM
[2019-08-20 16:12] LABS: ALLEN TEST NO; BLOOD TYPE ARTERIAL; METHB 1.4 % (0.0-1.5); O2(CT) 15.8 mL/dL (15.0-23.0); O2HB 92.1 % (95.0-99.0); PCO2(98.6) 29 mmHg (35-45); PO2(98.6) 63 mmHg (60-100); SAMPLE BLOOD; SAO2 95.3 % (95.0-100.0); THB 12.2 g/dL (11.5-17.4); pH(98.6) 7.48 (7.35-7.45)
[2019-08-20 16:13] LABS: MODALITY CANNULA
[2019-08-20 16:53] LABS: BASO# 0.02 X1000 (0.0-0.2); BASO% 0.1 % (0.0-0.8); EOS# 0.01 X1000 (0.0-0.7); EOS% 0.1 % (0.0-10.0); HEMATOCRIT 34.1 % (37.0-47.0); HEMOGLOBIN 10.9 g/dL (12.0-16.0); IMM GRAN# 0.08 X1000 (0.0-0.04); IMM GRAN% 0.6 % (0.0-0.5); LYMPH% 13.3 % (20.5-51.1); MCV 90.7 FL (81-99); MONO# 1.67 X1000 (0.11-0.59); MONO% 11.7 % (1.7-9.3); MPV 10.2 FL (7.4-10.4); NEUT# 10.56 X1000 (1.4-6.5); NEUT% 74.2 % (42.2-75.2); PLT 451 X1000 (130-400); RBC 3.76 XMIL (4.2-5.4); RDW 14.4 % (11.5-14.5); WBC 14.24 X1000 (4.8-10.8)
[2019-08-20 16:57] LABS: INR 2.51; PROTIME 27.8 Seconds (11.0-16.0)
[2019-08-20 16:58] LABS: PTT 46.1 Seconds (22.3-41.8)
[2019-08-20] MEDS ORDERED: LANOXIN IV ONE ×2 (16:59→21:15)
[2019-08-20 17:11] LABS: AGAP 20; ALB/GLOB RATIO 1.2; ALBUMIN 2.9 g/dL (3.5-5.0); ALKALINE PHOSPHATASE 42 U/L (32-104); BUN 25 mg/dL (8-22); CALCIUM 8.5 mg/dL (8.8-10.2); CHLORIDE 105 mmol/L (98-107); CK PROFILE 84 U/L (24-173); COSMO 293; CREATININE 0.7 mg/dL (0.5-0.9); ESTIMATED GFR > 60; GLUCOSE 131 mg/dL (70-104); GOT 18 U/L (10-30); GPT 13 U/L (10-36); MAGNESIUM 2.1 mg/dL (1.5-2.7); POTASSIUM 3.9 mmol/L (3.5-5.1); SODIUM 144 mmol/L (136-145); TCO2 19 mmol/L (25-35); TOTAL BILIRUBIN 0.57 mg/dL (0.20-1.00); TOTAL PROTEIN 5.4 g/dL (6.3-8.3)
[2019-08-20 17:13] LABS: URINE SOURCE CATH
[2019-08-20] MEDS ORDERED: LASIX IV ONE (17:16)
[2019-08-20] MEDS ORDERED: TYLENOL PO PRN ×2 (17:18→18:12)
[2019-08-20] MEDS ORDERED: ZOFRAN PO PRN (17:18)
--- NOTE | 2019-08-20 17:18 | PROVIDER DOCUMENTATION ---
This chart was entered by Robert Dietrich Scribe, acting as scribe for Flako Mckeon MD. HPI-Respiratory General - General Stated Complaint: SOB Time Seen by Provider: 08/20/19 15:29 Source: EMS Allergies/Adverse Reactions: Patient Allergies Allergy/AdvReac Type Severity Reaction Status Date / Time Penicillins Allergy Unknown Verified 05/11/19 11:27 Home Medications: Home Medication List Medication Instructions Recorded Confirmed Last Taken Type Amlodipine [Norvasc] 5 mg PO DAILY 05/11/19 05/11/19 05/11/19 History Lovastatin 20 mg PO DAILY 05/11/19 05/11/19 05/10/19 History Meloxicam [Mobic] 15 mg PO DAILY 05/11/19 05/11/19 05/11/19 History Metoprolol Tartrate [Lopressor] 100 mg PO BID 05/11/19 05/11/19 05/11/19 History Mv-Mn/Lutein/Zeax/Bilber/Hb277 1 ea PO DAILY 05/11/19 05/11/19 05/10/19 History [Macular Health Formula Capsule] Apixaban [Eliquis] 5 mg PO BID tab 05/20/19 Unknown Rx Diltiazem [Cardizem] 60 mg PO Q8HR tab 05/20/19 Unknown Rx LOVAstatin [Mevacor] 20 mg PO WSUPPER tab 05/20/19 Unknown Rx Linaclotide [Linzess] 145 mcg PO DAILY@0700 cap 05/20/19 Unknown Rx Menthol/Zinc Oxide Ointment 1 gm TOP PRN PRN tube 05/20/19 Unknown Rx [Calmoseptine Ointment] Metoprolol [Lopressor] 25 mg PO Q6HR tab 05/20/19 Unknown Rx Tramadol [Ultram] 50 mg PO Q6H PRN PRN tab 05/20/19 Unknown Rx - History of Present Illness-Resp Nature of Presenting Problem: 84 y/o F presents to the via EMS from [facility] for decreased O2 SAT on 2L of oxygen. EMS states that pt's O2 SAT at senior care was in the "80s" even with oxygen. Staff from [facility] reports that patient was recently dx with pneumonia and bilateral lower extremity DVTs. Per EMS patient is a level 1 DNR. According to the family patient PCP is Dr Lowe. No other complaints at this time. Severity in ED: reports: mild Onset/Duration: reports: this morning Timing: reports: still present Cough Quality/Degree: reports: moderate, productive cough Current Respiratory Medication Therapy: Initiated see nurses note Modifying Factors: improves with: nothing Associated Symptoms: reports: cough, shortness of breath Similar Symptoms Previously?: No Recently seen or treated by another doctor?: No Review of Systems - Adult - REVIEW OF SYSTEMS - ADULT ROS:: ROS per family Constitutional: denies: chills, fever Eyes: reports: no symptoms reported Ears, Nose, Mouth & Throat: reports: no symptoms reported Cardiovascular: denies: chest pain, palpitations Respiratory: reports: cough, shortness of breath Gastrointestinal: denies: diarrhea, nausea, vomiting Genitourinary: reports: no symptoms reported Musculoskeletal: reports: no symptoms reported Integumentary: reports: no symptoms reported Neurological: denies: dizziness/vertigo, headache/migraines Psychiatric: reports: no symptoms reported Endocrine: reports: no symptoms reported Hematologic/Lymphatic: reports: no symptoms reported Allergic/Immunologic: reports: no symptoms reported All Other Systems: Reviewed and Negative Past History - Adult - PAST MEDICAL HISTORY-ADULT Review of Records: reports: Nursing Assessment Review, Medications Reviewed Cardiovascular: reports: HTN Neurological: reports: dementia - IMMUNIZATION STATUS Childhood Immunizations: See Nurse Assessment Flu Vaccine: See Nurse Assessment Physical Exam-General - PHYSICAL EXAM-ADULT Initial Vital Signs Reviewed: Yes - CONSTITUTIONAL General Appearance: alert, mild distress, anxious - HEAD, EARS, NOSE, MOUTH & THROAT HENMT: other (dry mucous membranes; excoriated lesions right forehead) - NECK Neck: normal inspection - RESPIRATORY Respiratory: respiratory distress (mild), rhonchi (right base), wheezing (audible and expiratory), other (tachypneic) - CARDIOVASCULAR Cardiovascular: normal peripheral pulses, irregularly irregular - GASTROINTESTINAL (ABDOMEN) Abdominal Exam: soft - MUSCULOSKELETAL Extremity: other (bilateral lower extremity muscle contracture) - SKIN Integumentary: warm/dry - PSYCHIATRIC Psych/Mental Status: anxious Progress - PLAN OF CARE/RESULTS Progress/Plan/Lab Results: Vital Signs - 8 hr 08/20/19 15:30 08/20/19 15:36 08/20/19 16:00 Temperature 100.7 F H Pulse Rate 145 H 147 H Respiratory Rate 28 H 30 H Blood Pressure 107/81 107/81 112/76 O2 Sat by Pulse Oximetry 91 L 91 L 86 L 08/20/19 16:03 08/20/19 16:04 08/20/19 16:05 Temperature Pulse Rate 127 H 120 H 129 H Respiratory Rate 32 H 22 35 H Blood Pressure 114/73 111/85 O2 Sat by Pulse Oximetry 95 08/20/19 16:06 08/20/19 16:12 08/20/19 16:20 Temperature Pulse Rate 138 H 127 H 133 H Respiratory Rate 36 H 30 H 34 H Blood Pressure 103/75 109/72 109/67 O2 Sat by Pulse Oximetry 91 L 82 L Laboratory Results - last 24 hr 08/20/19 08/20/19 08/20/19 16:05 16:37 16:37 WBC 14.24 H RBC 3.76 L Hgb 10.9 L Hct 34.1 L MCV 90.7 MCH 29.0 MCHC 32.0 L RDW Std Deviation 14.4 Plt Count 451 H MPV 10.2 Immature Gran % (Auto) 0.6 H Neut % (Auto) 74.2 Lymph % (Auto) 13.3 L [place] % (Auto) 11.7 H Eos % (Auto) 0.1 Baso % (Auto) 0.1 Immature Gran # (Auto) 0.08 H Neut # (Auto) 10.56 H Lymph # (Auto) 1.90 [place] # (Auto) 1.67 H Eos # (Auto) 0.01 Baso # (Auto) 0.02 PT INR PTT (Actin FS) Specimen Type ARTERIAL Sample Site R BRACHIAL pH 7.48 H pCO2 29 L pO2 63 HCO3 24.0 Base Excess -1.0 Oxyhemoglobin 92.1 L ABG O2 Sat (Calculated) 15.8 ABG O2 Saturation 95.3 ABG Carboxyhemoglobin 1.90 ABG Methemoglobin 1.4 Lawson Test NO A-a O2 Difference 129.0 Total Hemoglobin 12.2 Lactate 2.30 H Liter Flow 3.0 Blood Gas Modality CANNULA FiO2 % 32.0 Sodium 144 Potassium 3.9 Chloride 105 Carbon Dioxide 19 L Anion Gap 20 BUN 25 H Creatinine 0.7 Estimated GFR/1.73 m2 > 60 BUN/Creatinine Ratio 36 Glucose 131 H Calculated Osmolality 293 Calcium 8.5 L Magnesium 2.1 Total Bilirubin 0.57 AST 18 ALT 13 Alkaline Phosphatase 42 Creatine Kinase 84 Troponin T Total Protein 5.4 L Albumin 2.9 L Globulin 2.5 Albumin/Globulin Ratio 1.2 08/20/19 08/20/19 16:37 16:37 WBC RBC Hgb Hct MCV MCH MCHC RDW Std Deviation Plt Count MPV Immature Gran % (Auto) Neut % (Auto) Lymph % (Auto) [place] % (Auto) Eos % (Auto) Baso % (Auto) Immature Gran # (Auto) Neut # (Auto) Lymph # (Auto) [place] # (Auto) Eos # (Auto) Baso # (Auto) PT 27.8 H INR 2.51 PTT (Actin FS) 46.1 H Specimen Type Sample Site pH pCO2 pO2 HCO3 Base Excess Oxyhemoglobin ABG O2 Sat (Calculated) ABG O2 Saturation ABG Carboxyhemoglobin ABG Methemoglobin Lwason Test A-a O2 Difference Total Hemoglobin Lactate Liter Flow Blood Gas Modality FiO2 % Sodium Potassium Chloride Carbon Dioxide Anion Gap BUN Creatinine Estimated GFR/1.73 m2 BUN/Creatinine Ratio Glucose Calculated Osmolality Calcium Magnesium Total Bilirubin AST ALT Alkaline Phosphatase Creatine Kinase Troponin T < 0.010 Total Protein Albumin Globulin Albumin/Globulin Ratio Orders Category Date Time Status Cardiac Monitoring DIRECTED Care 08/20/19 15:36 Active Burger Cath Insertion ORDERED Care 08/20/19 15:37 Active IV Insertion ORDERED Care 08/20/19 15:36 Completed Notify Physician As Ordered Care 08/20/19 15:36 Active CHEST-1 VIEW [RAD] Stat Exams 08/20/19 15:36 Completed ABG [RESP] Routine Lab 08/20/19 16:05 Completed BLOOD CULTURE [BLDCUL] Stat Lab 08/20/19 16:00 Results CBC WITH DIFF [HEME] Stat Lab 08/20/19 16:37 Results CK PROFILE [SP CHEM] Stat Lab 08/20/19 16:37 Completed COMPREHENSIVE METABOLIC PANEL [CHEM] Stat Lab 08/20/19 16:37 Completed LACTATE, PLASMA [CHEM] Q3H Lab 08/20/19 16:37 Received LACTATE, PLASMA [CHEM] Q3H Lab 08/20/19 18:45 Uncollected LACTATE, PLASMA [CHEM] Q3H Lab 08/20/19 21:45 Uncollected MAGNESIUM [CHEM] Stat Lab 08/20/19 16:37 Completed PROTIME WITH INR [COAG] Stat Lab 08/20/19 16:37 Completed PTT [COAG] Stat Lab 08/20/19 16:37 Completed SPUTUM CULTURE WITH GRAM STAIN [RM] Stat Lab 08/20/19 15:37 Uncollected TROPONIN T Stat Lab 08/20/19 16:37 Completed URINALYSIS W/POSS RFLX CULT [URINALYSIS] Stat Lab 08/20/19 17:00 Received 0.9% Sodium Chloride Inj [Ns] 1,000 ml Med 08/20/19 15:38 Discontinued IV 999 mls/hr Albuterol 2.5MG/Ipratrop 0.5MG [Duoneb (A & A)] Med 08/20/19 15:39 Discontinued 3 ml INH NOW ONE CefEPIME [Maxipime] 1 gm Med 08/20/19 15:38 Discontinued 0.9% Sodium Chloride Inj [Ns] 50 ml IV NOW Digoxin [Lanoxin] Med 08/20/19 16:59 Discontinued 500 microgm IV NOW ONE Diltiazem 100 mg/Ns [Cardizem 100 mg/Ns] Med 08/20/19 17:00 Active 100 mg in 100 ml IV As Directed mls/hr Diltiazem [Cardizem] Med 08/20/19 15:48 Discontinued 20 mg IV NOW ONE Diltiazem [Cardizem] Med 08/20/19 16:46 Discontinued 20 mg IV NOW ONE Methylprednisolone Sod Succ [Solu-Medrol] Med 08/20/19 15:38 Discontinued 125 mg IV NOW ONE Vancomycin 1 gm/Ns Med 08/20/19 15:38 Discontinued 1 gm in 250 ml IV NOW Aerosol Treatments Routine Oth 08/20/19 15:39 Completed Aerosol Treatments Stat Oth 08/20/19 15:39 Completed Oxygen Device Stat Oth 08/20/19 15:36 Completed Result Diagrams: 08/20/19 16:37 08/20/19 16:37 - REASSESSMENT Reassessment #1 Time Reassessed: 16:45 (Patient is still tachycardic in atrial fibrillation, no response to diltiazem) Status: unchanged Reassessment #2 Time Reassessed: 17:14 Status: improving (Given Duoneb, solumedrol, IVF and IV vanco/maxipime for likely HCAP PNE. Patient given IV Cardizem bolus x 2 and placed on cardizem drip. Also given IV digoxin for rate control. Will need admission to [facility]. Patient meets sepsis criteria, and Lacate is elevated.) - EKG 1 Time of EKG reading by physician:: 15:51 EKG Read and Signed by:: Flako Mckeon EKG Interpretation (*Must complete 3 of following elements*): Abnormal Rate: 143 Rhythm: atrial fibrillation with RVR QRS: LVH ST Wave: non-specific ST changes - XRAY 1 XRAY Study: Chest Impression: See EMR Report (CHEST-1 VIEW - 08/20/2019 INDICATION: resp distress COMPARISON: 05/20/2019 FINDINGS: There is cardiomegaly and pulmonary vascular congestion. There is ill-defined bilateral interstitial pulmonary edema. There are trace pleural effusions. IMPRESSION: Cardiomegaly, pulmonary edema, trace pleural effusions. Electronically signed by Sidney Rabago 08/20/2019 4:08 PM 08/20/19 1605 Interpreting Physician: Sidney Rabago MD Dictated Date/Time: 08/20/19 160 cc: Flako Mckeon MD; Mathew Lowe MD) - CONSULTS/PCP/HOSPITALIST Notification #1 *Consult/PCP/Hospitalist*: Dr Harden Time Discussed: 16:00 Consult Disposition: Will see in ED, Admit Departure - Departure Date of Disposition Decision: 08/20/19 Time of Disposition Decision: 17:16 DIAGNOSIS: Sepsis due to pneumonia, Persistent atrial fibrillation with RVR Disposition: ADMITTED INPATIENT 09 Certified Medical Emergency: Emergent Condition: Serious Referrals and Follow-Ups: Mathew Lowe MD [Primary Care Provider] - - Critical Care Note This patient required my direct & personal management of CC.: Yes Total Time (mins): 45 (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 Attestation - Physician/ REMA Attestation Patient care was provided by Advanced Practice Provider:: No The physician spent face to face time with patient:: Yes Advanced Practice Provider documentation review:: Supervising physician onsite and consulted in the evaluation and care of this patient. The physician did have a face to face encounter with the patient. This chart was documented by the indicated scribe, (Robert Dietrich, Margyibfaye) and accurately reflects the services I performed and decisions made by me, Flako Mckeon MD, as attested by the provider's signature.
[2019-08-20 17:25] LABS: BILIRUBIN URINE NEGATIVE (NEGATIVE); BLOOD URINE MODERATE (NEGATIVE); COLOR YELLOW; GLUCOSE URINE NEGATIVE (NEGATIVE); KETONE URINE 10 mg/dL (NEGATIVE); LEUKOCYTES URINE LARGE (NEGATIVE); NITRITE URINE NEGATIVE (NEGATIVE); PH URINE 8.5; PROTEIN URINE 200 mg/dL (NEGATIVE); SP GRAVITY URINE 1.026; TURBIDITY URINE HAZY (CLEAR); UROBILINOGEN URINE 3 mg/dL (NORMAL)
[2019-08-20 17:30] LABS: BANDS 11 % (0-1); LARGE PLATELETS OCCASIONAL; LYMPHS 16 % (21-51); MONO 4 % (1-9); POIKILOCYTOSIS OCCASIONAL; SEGS 64 % (42-75)
[2019-08-20 17:32] LABS: UR EPITHELIAL CELLS <10 /HPF (<10); URINE BACTERIA 4+ /HPF; URINE RBC TNTC /HPF (<10); URINE WBC TNTC /HPF (<10)
[2019-08-20] MEDS: CARDIZEM 100 MG/NS 100 MG/100 ML IVPB IV SCH ×2 (17:33→23:54)
[2019-08-20 17:49] LABS: URINE CASTS NONE SEEN; URINE YEAST NONE SEEN
[2019-08-20] MEDS ORDERED: CALMOSEPTINE OINTMENT TOP PRN (17:50)
[2019-08-20 17:54] LABS: URINE CRYSTALS TRIPLE PHOS PRESENT; URINE SMALL ROUND CELLS TRANS PRESENT
[2019-08-20] MEDS: ULTRAM PO PRN ×2 (18:54→23:19)
[2019-08-20] MEDS: DUONEB (A & A) INH SCH ×2 (19:33→22:44)
--- NOTE | 2019-08-20 20:55 | HISTORY AND PHYSICAL ---
CHIEF COMPLAINT: Shortness of breath. HISTORY OF PRESENT ILLNESS: The patient is an 84-year-old white female followed by Dr. Lowe. She has been a resident at the local [facility]. She has had some paroxysmal atrial fibrillation and suffered from recent urinary tract infection, somewhat difficult to treat at the [facility] per Dr. Lowe, by family report. She has taken at least Bactrim since she has been out there and had maybe 3 rounds of antibiotics. MEDICATIONS: Prior to admission are Norvasc 5 mg p.o. daily; Mobic 15 mg p.o. daily; Lopressor 100 mg p.o. b.i.d.; Macular Health Formula capsule 1 p.o. daily; lovastatin 20 mg p.o. daily; Calmoseptine ointment; Eliquis 5 mg p.o. b.i.d.; Linzess 145 mcg p.o. daily; diltiazem 60 mg p.o. q.8 hours; tramadol 50 mg p.o. q.6 hours p.r.n. pain. ALLERGIES: Penicillin. PAST MEDICAL HISTORY: 1. 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 2. Frequent UTIs. 3. Small abdominal aortic aneurysm. 4. Cholelithiasis. 5. Paroxysmal atrial fibrillation diagnosed last admission in May. 6. History of aspiration pneumonia. 7. Mild dementia. 8. Macular degeneration. 9. Osteoarthritis. 10. Hypercholesterolemia. 11. History of varicose veins. 12. GERD. PAST SURGICAL HISTORY: BSO. FAMILY HISTORY: Notable for TB in her brother 60 years ago; diabetes and heart disease in the family. SOCIAL HISTORY: The [facility] in the [facility] now. She has never been a smoker. No alcohol use. She has children to include a daughter and son, who are attentive in her care. REVIEW OF SYSTEMS: As above. PHYSICAL EXAMINATION: VITAL SIGNS: Temperature 100.7 degrees on admission, pulse in the high 140s. Blood pressure in the 92/71 range now after receiving diltiazem 20 mg bolus x2. Heart rate has decreased very slightly with that. Respirations are 32. O2 saturation 82% on 4 L at one point, now up to 91% on 4 L. GENERAL: Elderly, somewhat frail-appearing, weak-appearing white female. She is alert and responding to her family well. SKIN: No breakdown. HEENT: NC/AT. PERRL. EOMI. Sclerae anicteric. OP: Tongue in the midline. NECK: No LA, TMG or bruits. Positive JVD. CARDIOVASCULAR: Tachycardia. Irregularly irregular. LUNGS: Crackles and wheezes bilaterally, mild to moderate. ABDOMEN: Soft, protuberant. No point tenderness. No mass or organomegaly appreciated. BREASTS: Deferred. PELVIC/RECTAL: Deferred. EXTREMITIES: No calf tenderness, cords or edema. NEUROLOGIC: Cranial nerves are intact. Mild confusion. Looks about appropriately. Moves all extremities well. Follows some commands. LABORATORY DATA: Shows white count of 14.2, hemoglobin 10.9, hematocrit 34.1, MCV 90.7, platelets 451,000. PT 27.8, INR 2.51, PTT 46.1. ABG on 3 L reveals pH 7.48, pCO2 is 29, pO2 is 63, HCO3 is 24, O2 saturation 95.3%. Lactate level 2.3 off the ABG. Sodium is 144, potassium 3.9, chloride 105, CO2 of 19, BUN 25, creatinine 0.7, glucose 131, calcium 8.5, magnesium 2.1, total bilirubin 0.57, AST 18, ALT 13, alkaline phosphatase 42. Total CK 84, troponin less than 0.01. Total protein 5.4, albumin 2.9. Urinalysis is a catheterized specimen. It is hazy, moderate blood, negative nitrite and bilirubin, leukocytes large, WBCs too numerous to count, RBCs too numerous to count, epithelial cells less than 10, 4+ bacteria. DIAGNOSTIC DATA: Chest x-ray reveals cardiomegaly, pulmonary edema, trace pleural effusions. ASSESSMENT: 1. Acute congestive heart failure. 2. Atrial fibrillation with rapid ventricular response. 3. Probable sepsis with urinary tract infection, rule out concomitant pneumonia. 4. Mild dementia. 5. History of pulmonary emboli, stable on Eliquis currently. 6. History of cholelithiasis. 7. Small abdominal aortic aneurysm. 8. Osteoarthritis. 9. Dyslipidemia. PLAN: The patient has been admitted to the [facility] area. She has received digoxin 0.5 mg load and Cardizem 20 mg IV bolus x2, and will be placed on Cardizem drip at 10 mg/h. Dr. Mckeon has initiated this appropriately. Blood cultures and urine culture have been obtained. The patient is being placed on cefepime and vancomycin IV. She will be placed on clear liquids. Continue her Eliquis. Give her Zofran and Tylenol as needed, and her Ultram if she needs it. She will be continued on her Linzess for her bowel movements and will be given DuoNeb q.4 hours. We will follow up electrolytes, digoxin level, CBC in the morning. She is a Do Not Resuscitate/Allow Natural level 1 per family request, and she has a Living Will in that regard. cc: MD Mathew Jung MD
[2019-08-20] MEDS: ELIQUIS PO SCH (21:19)
[2019-08-21] MEDS: DUONEB (A & A) INH SCH ×6 (03:05→22:54)
[2019-08-21] MEDS: ULTRAM PO PRN ×3 (06:05→19:53)
[2019-08-21] MEDS: LINZESS PO SCH (06:06)
[2019-08-21 07:01] LABS: CALCIUM 8.8 mg/dL (8.8-10.2); CREATININE 0.9 mg/dL (0.5-0.9); POTASSIUM 3.5 mmol/L (3.5-5.1)
[2019-08-21 07:03] LABS: BASO# 0.01 X1000 (0.0-0.2); BASO% 0.1 % (0.0-0.8); IMM GRAN# 0.08 X1000 (0.0-0.04); IMM GRAN% 0.6 % (0.0-0.5); MCH 29.3 PG (27-31); MCHC 32.4 g/dL (33-37); MCV 90.7 FL (81-99); MONO# 0.95 X1000 (0.11-0.59); MONO% 7.2 % (1.7-9.3); MPV 10.3 FL (7.4-10.4); NEUT# 11.78 X1000 (1.4-6.5); NEUT% 89.1 % (42.2-75.2); PLT 457 X1000 (130-400); RBC 3.75 XMIL (4.2-5.4); RDW 14.5 % (11.5-14.5); WBC 13.22 X1000 (4.8-10.8)
[2019-08-21 07:14] LABS: BANDS 8 % (0-1); LYMPHS 2 % (21-51); MONO 13 % (1-9); SEGS 77 % (42-75)
[2019-08-21] MEDS: CARDIZEM 100 MG/NS 100 MG/100 ML IVPB IV SCH (08:43)
[2019-08-21] MEDS: ELIQUIS PO SCH ×2 (08:45→19:54)
--- NOTE | 2019-08-21 08:58 | EKG Report ---
Test Performed on : 08/21/2019 06:30:01 AM Test Reason : CP Blood Pressure : / mmHG Vent. Rate : 102 BPM Atrial Rate : 127 BPM P-R Int : 000 ms QRS Dur : 070 ms QT Int : 310 ms P-R-T Axes : 000 -02 126 degrees QTc Int : 404 ms Atrial fibrillation. with rapid ventricular response. with premature ventricular or aberrantly conduc susannah complexes. Nonspecific ST and T wave abnormality Abnormal ECG When compared with ECG of 20-AUG-2019 15:36, (Unconfirmed) Nonspecific T wave abnormality, worse in Lateral leads Unconfirmed Result
[2019-08-21] MEDS ORDERED: VANCOMYCIN IV PER PHARMACY MISC SCH (09:45)
--- NOTE | 2019-08-21 10:16 | PROGRESS NOTE ---
DATE: 08/21/2019 SUBJECTIVE: Patient is sleeping. She is arousable and answers questions. She appears to have mild baseline dementia, but she answers questions well overall. She complains of some left leg pain. OBJECTIVE: Vital Signs: T-max 100.7 degrees at admission. Otherwise, afebrile since then. Pulse running in the room now 91 to low 100s, respirations 20, blood pressure 133/82, O2 saturation on 6 L 93%. This is via nasal cannula. Cardiovascular: Irregularly irregular. Lungs: Crackles at the lung bases bilaterally. Rare wheeze. Abdomen: Protuberant, soft, nontender. Extremities: There is mild lower extremity edema. There is tenderness at the left thigh and left calf area without definite cord palpable. Neurologic: Patient appears to be at her baseline mild confusion. She moves all extremities well. No focal deficits. Cranial nerves 2-12 are intact. LABORATORY DATA: Shows white count of 13 down from 14, hemoglobin 11, platelets 457,000. INR yesterday 2.51. Sodium 145, potassium 3.5, chloride 108, CO2 21, BUN 28, creatinine 0.9, calcium 8.8, plasma lactate late yesterday evening 2.3. Blood cultures x2 are negative thus far. Urine culture in progress. Digoxin level is therapeutic at 1.0. ASSESSMENT: 1. Atrial fibrillation with rapid ventricular response. 2. Acute congestive heart failure, thought related to #1 number. 3. Sepsis with urinary tract infection. Rule out concomitant pneumonia. 4. Mild dementia. 5. Left leg pain with history of pulmonary embolus a few months ago with patient on Eliquis currently. 6. History of cholelithiasis. 7. Small abdominal aortic aneurysm. 8. Osteoarthritis. 9. Dyslipidemia. 10. Chronic constipation. 11. DNR level 1. PLAN: Follow blood cultures and urine culture and continue Maxipime and vancomycin IV. Continue diltiazem drip and digoxin. We will ask Dr. Henry, chemical laboratory scientist, to see the patient in consultation. Continue Eliquis as she is on and the nebulizer treatments, and will give daily dose of Lasix 40 mg IV daily while repleting her potassium. Continue Linzess for the latter. We will follow strict I Os. Repeat chest x-ray and labs in the morning and check venous Doppler left leg in the morning. cc: MD Mathew Jung MD
[2019-08-21] MEDS: ATIVAN IV PRN ×3 (10:41→23:16)
[2019-08-21] MEDS: LANOXIN IV SCH (10:48)
[2019-08-21] MEDS: MAXIPIME 1 GM in NS 50 ML IV SCH (10:48)
[2019-08-21] MEDS: LASIX IV SCH (10:48)
[2019-08-21] MEDS: KLOR-CON PO SCH (10:48)
[2019-08-21] MEDS: VANCOMYCIN 1,700 MG in NS 250 ML IV SCH (12:04)
--- NOTE | 2019-08-21 14:00 | CARDIOLOGY CONSULTATION ---
DATE: 08/21/2019 REASON FOR CONSULTATION: Cardiology was consulted for atrial fibrillation with rapid ventricular rate. HISTORY OF PRESENT ILLNESS: An 84-year-old lady is a resident at the [facility]. She has had paroxysmal atrial fibrillation recently diagnosed in May. She had recent urinary tract infection, difficult to treat at the intermediate. She was brought in with fevers and shortness of breath, was noted to be in atrial fibrillation with rapid ventricular rate, started on a Cardizem drip. The patient has significant dementia. History was obtained discussing with family as well as from the chart. She has been started on antibiotics as well for her urinary tract infection. Chest x-ray revealed heart failure. As far as atrial fibrillation is concerned, she is on a Cardizem drip, was given Lanoxin IV, which has controlled her heart rate. PAST MEDICAL HISTORY: 1. History of right-sided PE on admission in May with atrial fibrillation, on chronic Eliquis treatment since then. 2. Frequent urinary tract infections. 3. Small abdominal aortic aneurysm. 4. Cholelithiasis. 5. Aspiration pneumonia. 6. Dementia. 7. Macular degeneration. 8. Gastroesophageal reflux disease. 9. History of varicose veins. FAMILY HISTORY: Notable for TB in her brother 60 years ago. PAST SURGICAL HISTORY: Bilateral salpingo-oophorectomy. HOME MEDICATIONS: Norvasc 5, Lopressor 100 b.i.d., diltiazem 60 mg every 8 hours, Eliquis 5 mg p.o. b.i.d., Linzess 125 mcg, tramadol 50 mg every 6 hours, lovastatin 20 mg a day. PHYSICAL EXAMINATION: Vital Signs: Blood pressure 133/82. Heart: First and second heart sounds were heard. Respiratory: Bibasilar inspiratory crepitations. Abdomen: Soft, nontender. There was no guarding or rigidity. Bowel sounds were heard. Central Nervous System: Was somnolent. Detailed central nervous system examination not performed. IMAGING AND LABORATORY DATA: Sodium 145, potassium 3.5, BUN 28, creatinine 0.9. Cardiac enzymes negative. Troponin 4924. Urine: Moderate urine blood noted, urine protein positive, large leukocyte, WBCs, and RBCs. Chest x-ray suggestive of pulmonary edema, pleural effusion. ASSESSMENT AND PLAN: Ms. Kimber Raymond is an 84-year-old lady with history of atrial fibrillation, pulmonary embolism in the past, who had an echocardiogram done during recent hospitalization, which revealed preserved left ventricular systolic function. Has had recurrent urinary tract infection. She is admitted with urinary tract infection, heart failure, atrial fibrillation with rapid ventricular rate. 1. As far as atrial fibrillation is concerned, will discontinue the Cardizem, and put her on her home medication of beta-blockers and oral Cardizem. She was given intravenous digoxin, which has controlled heart rate. I will continue that for the moment. 2. She has significant urinary tract infection. Started on antibiotics. 3. Continue with anticoagulation therapy. She has had a pulmonary embolism and atrial fibrillation. I have not made any changes. 4. I suspect her heart failure is related to atrial fibrillation with rapid ventricular rate. At discharge, she will need diuretics as well of Lasix, at least 20 to 40 mg by mouth. Currently, she is on intravenous. I have not made any changes. Thank you for the consult. Will follow hospital course. cc: MD Mathew Velasquez MD
[2019-08-21] MEDS: CARDIZEM PO SCH ×2 (14:34→19:53)
[2019-08-21] MEDS ORDERED: BLISTEX MEDICATED BERRY LIP BALM TOP PRN (18:30)
[2019-08-21] MEDS: LOPRESSOR PO SCH (19:54)
[2019-08-22] MEDS: ELIQUIS PO SCH ×3 (01:14→20:27)
[2019-08-22] MEDS: CARDIZEM PO SCH ×4 (01:14→20:25)
[2019-08-22] MEDS: LOPRESSOR PO SCH ×3 (01:15→20:27)
[2019-08-22] MEDS: MAXIPIME 1 GM in NS 50 ML IV SCH ×2 (01:22→12:00)
[2019-08-22] MEDS: ULTRAM PO PRN (01:22)
[2019-08-22] MEDS: DUONEB (A & A) INH SCH ×6 (03:30→23:49)
[2019-08-22] MEDS: LINZESS PO SCH ×2 (05:38→07:52)
[2019-08-22] MEDS: ATIVAN IV PRN ×4 (05:56→20:24)
[2019-08-22 06:02] LABS: BASO# 0.02 X1000 (0.0-0.2); BASO% 0.1 % (0.0-0.8); HEMATOCRIT 33.4 % (37.0-47.0); HEMOGLOBIN 10.2 g/dL (12.0-16.0); IMM GRAN# 0.21 X1000 (0.0-0.04); IMM GRAN% 1.4 % (0.0-0.5); LYMPH# 1.09 X1000 (1.2-3.4); LYMPH% 7.5 % (20.5-51.1); MCH 28.1 PG (27-31); MCHC 30.5 g/dL (33-37); MONO# 1.47 X1000 (0.11-0.59); MONO% 10.1 % (1.7-9.3); NEUT# 11.78 X1000 (1.4-6.5); NEUT% 80.9 % (42.2-75.2); PLT 442 X1000 (130-400); RBC 3.63 XMIL (4.2-5.4); RDW 14.8 % (11.5-14.5); WBC 14.57 X1000 (4.8-10.8)
--- NOTE | 2019-08-22 07:15 | Diag Imaging Result Doc PS360 ---
EXAM: CHEST-PORTABLE 08/22/2019 HISTORY: dyspnea TECHNIQUE: AP portable upright at 0546 COMMENT: There is patchy alveolar opacity in both lungs particularly in the lingula. This was also present on 08/20/2019. IMPRESSION: Bronchopneumonia. Electronically signed by Kirk Lopez 08/22/2019 7:13 AM
--- NOTE | 2019-08-22 07:38 | EKG Report ---
Test Performed on : 08/22/2019 07:09:31 AM Test Reason : Increased HR Blood Pressure : / mmHG Vent. Rate : 121 BPM Atrial Rate : 375 BPM P-R Int : 000 ms QRS Dur : 082 ms QT Int : 340 ms P-R-T Axes : 000 005 205 degrees QTc Int : 482 ms Atrial fibrillation. with rapid ventricular response. with premature ventricular or aberrantly conduc susannah complexes. ST & T wave abnormality, consider lateral ischemia Abnormal ECG When compared with ECG of 21-AUG-2019 06:30, (Unconfirmed) ST now depressed in Anterior leads Nonspecific T wave abnormality, worse in Inferior leads Nonspecific T wave abnormality, worse in Anterior leads Unconfirmed Result
--- NOTE | 2019-08-22 08:04 | EKG Report ---
Test Performed on : 08/20/2019 3:36:54 PM Test Reason : ED. NO EKG ORDER FOR MUSE Blood Pressure : / mmHG Vent. Rate : 143 BPM Atrial Rate : 394 BPM P-R Int : 000 ms QRS Dur : 068 ms QT Int : 244 ms P-R-T Axes : 000 -05 110 degrees QTc Int : 376 ms Atrial fibrillation. with rapid ventricular response. Minimal voltage criteria for LVH, may be normal variant Nonspecific ST and T wave abnormality Abnormal ECG When compared with ECG of 17-MAY-2019 06:47, Atrial fibrillation. has replaced Sinus rhythm. Vent. rate has increased BY [address] now depressed in Lateral leads Unconfirmed Result
[2019-08-22] MEDS ORDERED: MORPHINE IV ONE (08:34)
[2019-08-22 09:30] LABS: CALCIUM 8.9 mg/dL (8.8-10.2); CREATININE 0.9 mg/dL (0.5-0.9); DIGOXIN 1.5 ng/mL (0.9-2.0); MAGNESIUM 2.5 mg/dL (1.5-2.7); POTASSIUM 3.8 mmol/L (3.5-5.1)
--- NOTE | 2019-08-22 09:42 | PROGRESS NOTE ---
DATE: 08/22/2019 Ms. Raymond is not doing well. She was very short of breath this morning. We decided to give her some IV morphine and Zofran to go with it. She was admitted with atrial fibrillation with RVR and congestive heart failure. Her last admission, she had a DVT and pulmonary embolism. We have done the venous leg studies, ultrasound in the left leg. She is already on Eliquis, diltiazem, Lanoxin, IV Lasix, cefepime, as well as IV vancomycin. Overall prognosis looks poor. She is in atrial fibrillation with rapid ventricular rate. BUN is 34, creatinine of 0.9. We will try to do the CT angiogram to rule out pulmonary embolism. However, at present, she is too sick to go through it. She is Do Not Resuscitate level 1. cc: Mathew Lowe MD
[2019-08-22] MEDS: LASIX IV SCH (10:43)
[2019-08-22] MEDS: LANOXIN IV SCH (10:43)
[2019-08-22] MEDS: KLOR-CON PO SCH (10:44)
[2019-08-22] MEDS: MORPHINE IV PRN ×3 (13:21→21:27)
[2019-08-22] MEDS ORDERED: ATIVAN ONE (14:24)
[2019-08-23] MEDS: VANCOMYCIN 1,700 MG in NS 250 ML IV SCH (00:09)
[2019-08-23] MEDS: MAXIPIME 1 GM in NS 50 ML IV SCH (00:09)
[2019-08-23] MEDS: MORPHINE IV PRN ×11 (01:27→23:02)
[2019-08-23] MEDS: ATIVAN IV PRN ×9 (01:37→23:02)
[2019-08-23] MEDS: DUONEB (A & A) INH SCH ×6 (03:45→23:16)
[2019-08-23] MEDS: CARDIZEM PO SCH (05:28)
[2019-08-23] MEDS: LINZESS PO SCH (06:03)
[2019-08-23] MEDS: KLOR-CON PO SCH (09:04)
[2019-08-23] MEDS: LOPRESSOR PO SCH (09:04)
[2019-08-23] MEDS: ELIQUIS PO SCH (09:04)
--- NOTE | 2019-08-23 09:28 | Diag Imaging Result Doc PS360 ---
EXAM: CHEST-PORTABLE 08/23/2019 HISTORY: CHF TECHNIQUE: AP portable at 0912 COMMENT: Compared to 08/22/2019 the alveolar opacities in the lingula and left lower lobe have improved. There is slightly worsened opacification of the right base and inferior right upper lobe however. IMPRESSION: Waxing and waning opacities bilaterally as described. Pulmonary edema and/or pneumonia. Electronically signed by Kirk Lopez 08/23/2019 9:25 AM
[2019-08-23] MEDS ORDERED: ATIVAN IV PRN (09:37)
[2019-08-23] MEDS: LASIX IV SCH (09:46)
[2019-08-23] MEDS: LANOXIN IV SCH (09:46)
[2019-08-23] MEDS ORDERED: TYLENOL PR PRN (10:15)
[2019-08-23] MEDS ORDERED: ZOFRAN IV PRN (10:15)
[2019-08-23] MEDS ORDERED: TRANSDERM-SCOP TD SCH (10:30)
--- NOTE | 2019-08-23 11:32 | PROGRESS NOTE ---
DATE: 08/23/2019 Ms. Raymond is still restless. She is moaning and groaning. It is kind of hard to know if she is in pain. She continues to have atrial fibrillation with rapid ventricular response. Heart rate is ranging from 110 to 150. Her other vital signs are stable. She is afebrile. Blood pressure is fairly normal. I am going to get electrolytes stat today, Chem-7. It appears like she has UTI with Proteus mirabilis. However, she is covered with piperacillin, which it is sensitive to. Will continue the current antibiotic regimen. Overall prognosis is poor. She is DO NOT RESUSCITATE 1 and for comfort measures. cc: Mathew Lowe MD
[2019-08-23] MEDS ORDERED: BLISTEX MEDICATED BERRY LIP BALM TOP PRN (11:47)
--- NOTE | 2019-08-23 19:30 | Extremity Venous Study ---
PROCEDURE NAME: Venous U/S Left Leg - 08/22/2019 CLINIC BUSINESS MANAGER: Melchor. REQUESTING PHYSICIAN: Bladimir Harden MD. INDICATION: Left leg pain. EXAMINATION FOR COMPARISON: 05/11/2019. Hospital Technician notes somewhat limited study due to the patient's inability to lie still. FINDINGS: The deep and superficial veins of the left lower extremity were visualized along their course. All vessels appeared compressible with forward flow and no evidence of intraluminal thrombus. SUMMARY: No residual deep or superficial thrombus noted on this study when compared to the previous study from May. cc: MD Bladimir Oakes MD Amit V. Vora, MD
[2019-08-24] MEDS: MORPHINE IV PRN ×7 (01:06→09:00)
[2019-08-24] MEDS: ATIVAN IV PRN ×12 (01:06→18:55)
[2019-08-24] MEDS: DUONEB (A & A) INH SCH ×6 (03:21→23:27)
[2019-08-24] MEDS: LASIX IV SCH (08:31)
[2019-08-24] MEDS ORDERED: NARCAN IV PRN (08:55)
[2019-08-24] MEDS: MORPHINE PCA IV SCH (09:44)
[2019-08-24] MEDS ORDERED: NS 1,000 ML ONE (10:00)
[2019-08-24] MEDS: ATROPINE 1 % OPHTH SOLN SL PRN ×4 (10:37→18:55)
--- NOTE | 2019-08-24 11:47 | PROGRESS NOTE ---
DATE: 08/24/2019 Ms. Raymond's sister notes she is on palliative care. She continues to be in atrial fibrillation, has gross congestive heart failure, and has possibility of bilateral pneumonia. She is stuporous with morphine and Ativan injections, and gets very restless when she is aroused. Overall condition is unchanged. Chest x-ray looks worse. We will continue with the current management. Start her on the morphine pump. cc: Mathew Lowe MD
[2019-08-25] MEDS: MORPHINE PCA IV SCH ×2 (00:36→14:55)
[2019-08-25] MEDS: DUONEB (A & A) INH SCH ×5 (03:43→19:11)
[2019-08-25] MEDS: ATIVAN IV PRN ×6 (05:53→17:03)
[2019-08-25 07:37] VITALS: BP 112/50
[2019-08-25] MEDS ORDERED: NS 1,000 ML ONE (08:43)
--- NOTE | 2019-08-25 12:19 | PROGRESS NOTE ---
DATE: 08/25/2019 SUBJECTIVE: Ms. Raymond is terminal. She has some labored respirations. She has acute respiratory failure as well as congestive heart failure. Since she is not getting any fluid, I am going to resume to hold the Lasix now. Overall condition is unchanged. OBJECTIVE: Her extremity venous flow study was negative for deep vein thrombosis. Her vital signs are still holding up well. cc: Mathew Lowe MD
--- NOTE | 2019-08-27 13:17 | DISCHARGE SUMMARY ---
ADMISSION DATE: 08/20/2019 DISCHARGE DATE: 08/25/2019 Patient on 08/25/2019. Ms. Kimber Raymond was hospitalized because of atrial fibrillation, congestive heart failure, rapid ventricular rate. She was very restless, had respiratory failure. Chest x-ray had shown cardiomegaly, with trace pleural effusion. EKG had shown atrial fibrillation with very rapid ventricular rate. Nonspecific ST-T wave abnormality was seen. The venous flow studies were negative for new DVT. COURSE IN THE HOSPITAL: She was treated with IV Cardizem as well as IV Lasix. She continued to be very restless, was given morphine and Ativan and IV/ family decided about DNR and only comfort measures. Palliative care was consulted and we stopped most of the medications including the antibiotics for pneumonia. She finally succumbed on 08/25/2019. FINAL DIAGNOSES: Atrial fibrillation with RVR, congestive heart failure, bilateral pneumonia, acute respiratory failure. She was sent to the home. cc: Mathew Lowe MD
--- NOTE | 2019-09-01 06:58 | DISCHARGE SUMMARY ---
ADMISSION DATE: 08/20/2019 DISCHARGE DATE: 08/25/2019 ADDENDUM: Ms. Raymond was admitted on 08/20/2019. She on 08/25/2019. She had a high temperature. Lactate level was 2.3. She had a UTI. DIAGNOSIS: Sepsis present and treated. cc: Mathew Lowe MD
== END 2019-08-25 19:30 | disposition expired | DRG 871 ==
LOC: SUPCPDRO → ED 15:28 → 2N 17:30 → 3N 08-23 14:27
PROVIDERS: ADMIT Internal Medicine; ATTEND Internal Medicine